=== PATIENT | female | born 1990 | race Caucasian/White ===

== ENCOUNTER 2019-07-18 22:30 | Inpatient (IN) | payer BC ==
[2019-07-18] MEDS ORDERED: Nalbuphine 10 MG/1 ML Vial IVPUSH PRN (22:56)
[2019-07-18] MEDS ORDERED: Ondansetron 4 MG/2 ML SDV IVPUSH PRN (22:56)
[2019-07-18] MEDS ORDERED: Acetaminophen 325 MG Tab PO PRN (22:56)
[2019-07-18] MEDS ORDERED: Lidocaine 1% 50 ML MDV INJECT ONE (22:56)
[2019-07-18] MEDS ORDERED: Sodium Chloride 0.9% 10 ML Syringe FLUSH PRN (22:56)
[2019-07-18] MEDS ORDERED: Oxytocin/Lactated Ringers 10 UNIT/1,000 ML BAG IV SCH ×2 (23:00)
[2019-07-19] MEDS: Lactated Ringers 1,000 ML IV SCH ×3 (02:45→06:34)
[2019-07-19] MEDS ORDERED: fentaNYL/Bupivacaine/NS 2 MCG-0.125% 250 ML EPIDUR PRN (03:04)
[2019-07-19] MEDS ORDERED: fentaNYL 100 MCG/2 ML SDV EPIDUR PRN (03:04)
[2019-07-19] MEDS ORDERED: diphenhydrAMINE 50 MG/ML SDV IVPUSH PRN (03:04)
[2019-07-19] MEDS ORDERED: ePHEDrine 50 MG/ML SDV IVPUSH PRN (03:04)
--- NOTE | 2019-07-19 04:02 | PCM.PREANE ---
Preanesthetic Assessment - Anesthesia/Transfusion/Family Hx Anesthesia History: Prior Anesthesia Without Reaction Family History of Anesthesia Reaction: No Transfusion History: No Prior Transfusion(s) - Review of Systems General: No Symptoms Pulmonary: No Symptoms Cardiovascular: No Symptoms Gastrointestinal: No Symptoms Neurological: No Symptoms - Physical Assessment Vital Signs: Last Vital Signs Temp 35.9 C 07/19/19 02:46 Pulse 78 07/19/19 02:46 Resp 16 07/19/19 02:46 BP 130/83 07/19/19 02:46 Pulse Ox 97 07/19/19 02:46 Weight: 85.275 kg ASA Class: 2 Mental Status: Alert & Oriented x3 Airway Class: Mallampati = 2 Dentition: Reports: Normal Dentition Thyro-Mental Finger Breadths: 3 Mouth Opening Finger Breadths: 3 ROM/Head Extension: Full Lungs: Clear to Auscultation, Normal Respiratory Effort Cardiovascular: Regular Rate, Regular Rhythm - Lab Values: Laboratory Last Values WBC 12.20 K/mm3 (3.98-10.04) H 07/18/19 23:09 RBC 4.31 M/mm3 (3.98-5.22) 07/18/19 23:09 Hgb 12.2 gm/dl (11.2-15.7) D 07/18/19 23:09 Hct 37.1 % (34.1-44.9) 07/18/19 23:09 MCV 86.1 fl (79.4-94.8) 07/18/19 23:09 MCH 28.3 pg (25.6-32.2) 07/18/19 23:09 MCHC 32.9 g/dl (32.2-35.5) 07/18/19 23:09 RDW Std Deviation 42.4 fL (36.4-46.3) 07/18/19 23:09 Plt Count 281 K/mm3 (182-369) 07/18/19 23:09 MPV 9.6 fl (9.4-12.3) 07/18/19 23:09 Neut % (Auto) 72.1 % (34.0-71.1) H 07/18/19 23:09 Lymph % (Auto) 14.9 % (19.3-51.7) L 07/18/19 23:09 [place] % (Auto) 11.2 % (4.7-12.5) 07/18/19 23:09 Eos % (Auto) 0.9 (0.7-5.8) 07/18/19 23:09 Baso % (Auto) 0.2 % (0.1-1.2) 07/18/19 23:09 Neut # (Auto) 8.78 K/mm3 (1.56-6.13) H 07/18/19 23:09 Lymph # (Auto) 1.82 K/mm3 (1.18-3.74) 07/18/19 23:09 [place] # (Auto) 1.37 K/mm3 (0.24-0.36) H 07/18/19 23:09 Eos # (Auto) 0.11 K/mm3 (0.04-0.36) 07/18/19 23:09 Baso # (Auto) 0.03 K/mm3 (0.01-0.08) 07/18/19 23:09 - Allergies Allergies/Adverse Reactions: Allergies Allergy/AdvReac Type Severity Reaction Status Date / Time No Known Allergies Allergy Verified 07/19/19 03:06 - Acknowledgements Anesthesia Type Planned: Epidural Pt an Appropriate Candidate for the Planned Anesthesia: Yes Alternatives and Risks of Anesthesia Discussed w Pt/Guardian: Yes Pt/Guardian Understands and Agrees with Anesthesia Plan: Yes 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: - Infectious Disease History Infectious Disease History: Reports: Human Papilloma Virus (HPV) - Past Surgical History Musculoskeletal Surgical History: Reports: Other (See Below) Other Musculoskeletal Surgeries/Procedures:: TENDON SURGERY ON THUMB - SUBSTANCE USE Smoking Status *Q: Never Smoker Second Hand Smoke Exposure: No Recreational Drug Use History: No - CURRENT (IN HOUSE) MEDS Current Meds: Current Medications Acetaminophen (Tylenol) 650 mg PO Q4H PRN PRN Reason: Pain (Mild 1-3) and fever Diphenhydramine HCl (Benadryl) 25 mg IVPUSH Q6H PRN PRN Reason: pruritis Ephedrine Sulfate (Ephedrine Sulfate) 5 mg IVPUSH ASDIRECTED PRN PRN Reason: Hypotension Fentanyl (Sublimaze) 100 mcg EPIDUR Q3H PRN PRN Reason: Pain Last Admin: 07/19/19 03:50 Dose: 100 mcg Fentanyl/Bupivacaine HCl (Fentanyl/Bupivacaine/Ns 2 Mcg-0.125% 250 Ml) 0 ml EPIDUR CONTINUOUS PRN PRN Reason: Pain Last Admin: 07/19/19 03:51 Dose: 250 ml Lactated Ringer's (Ringers, Lactated) 1,000 mls @ 100 mls/hr IV ASDIRECTED BRIGIDA Last Admin: 07/19/19 03:07 Dose: 999 mls/hr Oxytocin/Lactated Ringer's (Pitocin In Lr 10 Units/1,000 Ml) 10 unit in 1,000 mls @ 12 mls/hr IV TITRATE BRIGIDA; Protocol Oxytocin/Lactated Ringer's (Pitocin In Lr 10 Units/1,000 Ml) 10 unit in 1,000 mls @ 100 mls/hr IV .CONTINUOUS BRIGIDA; Protocol Nalbuphine HCl (Nubain) 10 mg IVPUSH Q2H PRN PRN Reason: Pain Ondansetron HCl (Zofran) 4 mg IVPUSH Q4H PRN PRN Reason: Nausea/Vomiting Sodium Chloride (Saline Flush) 10 ml FLUSH ASDIRECTED PRN PRN Reason: Keep Vein Open Discontinued Medications Lidocaine HCl (Xylocaine 1%) 50 ml INJECT ONETIME ONE Stop: 07/18/19 22:57
--- NOTE | 2019-07-19 06:48 | PCM.PNLD ---
Labor Progress Note - VS & Meds Vital Signs: Last Vital Signs Temp 35.9 C 07/19/19 02:46 Pulse 87 07/19/19 04:00 Resp 16 07/19/19 02:46 BP 131/59 L 07/19/19 04:00 Pulse Ox 98 07/19/19 03:04 Active Medications: Current Medications Acetaminophen (Tylenol) 650 mg PO Q4H PRN PRN Reason: Pain (Mild 1-3) and fever Diphenhydramine HCl (Benadryl) 25 mg IVPUSH Q6H PRN PRN Reason: pruritis Ephedrine Sulfate (Ephedrine Sulfate) 5 mg IVPUSH ASDIRECTED PRN PRN Reason: Hypotension Fentanyl (Sublimaze) 100 mcg EPIDUR Q3H PRN PRN Reason: Pain Last Admin: 07/19/19 03:50 Dose: 100 mcg Fentanyl/Bupivacaine HCl (Fentanyl/Bupivacaine/Ns 2 Mcg-0.125% 250 Ml) 0 ml EPIDUR CONTINUOUS PRN PRN Reason: Pain Last Admin: 07/19/19 03:51 Dose: 250 ml Lactated Ringer's (Ringers, Lactated) 1,000 mls @ 100 mls/hr IV ASDIRECTED BRIGIDA Last Admin: 07/19/19 06:34 Dose: 999 mls/hr Oxytocin/Lactated Ringer's (Pitocin In Lr 10 Units/1,000 Ml) 10 unit in 1,000 mls @ 12 mls/hr IV TITRATE BRIGIDA; Protocol Oxytocin/Lactated Ringer's (Pitocin In Lr 10 Units/1,000 Ml) 10 unit in 1,000 mls @ 100 mls/hr IV .CONTINUOUS BRIGIDA; Protocol Nalbuphine HCl (Nubain) 10 mg IVPUSH Q2H PRN PRN Reason: Pain Ondansetron HCl (Zofran) 4 mg IVPUSH Q4H PRN PRN Reason: Nausea/Vomiting Sodium Chloride (Saline Flush) 10 ml FLUSH ASDIRECTED PRN PRN Reason: Keep Vein Open Discontinued Medications Lidocaine HCl (Xylocaine 1%) 50 ml INJECT ONETIME ONE Stop: 07/18/19 22:57 - Uterine Contractions Uterine Monitoring Mode: External [place] Contraction Intensity: Moderate to Strong Uterine Resting Tone: Soft - Monitoring Monitor Mode: External Ultrasound Heart Rate (FHR) Baseline: 140 Heart Rate (FHR) Variability: Moderate (6-25 bmp) Accelerations: Present, 15x15 Decelerations: Late (rare) Strip Review: Category II - Vaginal Exam Dilation (cm): 10 Effacement (Percent): 100 Station: 1 Cervical Position: Anterior - Labor Progress (Free Text) Labor Progress: Patient comfortable with epidural. Found to be complete with BOW. Membranes ruptured with meconium stained fluid. Continue management
[2019-07-19] MEDS ORDERED: Bupivacaine 0.25% 10 ML SDV ONE (08:00)
--- NOTE | 2019-07-19 09:21 | PCM.DEL ---
L & D Note - General Info Date of Service: 07/19/19 - Delivery Note Labor: Spontaneous Delivery Outcome: Livebirth Delivery Method: Spontaneous Vaginal Delivery-Single Delivery Mode: Spontaneous Presentation: Right Occiput Anterior (PAULIE) Nuchal Cord: None Anesthesia Type: Epidural Amniotic Fluid Description: Meconium Stained Episiotomy Type: None Laceration: 2nd Degree, Perineal Suture type: Vicryl Suture size: 2-0 Placenta: Intact, Spontaneous Cord: 3 Vessels Estimated Blood Loss: 200 : Bulb Syringe, Stimulated, Warmed, Owen Used, Warmer Used Delivery Comments (Free Text/Narrative):: Patient found to be complete and began pushing. With maternal pushing effort head delivered from PAULIE presentation. No nuchal cord present. With gentle downward traction the shoulders and body delivered. placed on maternal abdomen. Cord clamped and cut. Cord blood obtained. Placenta allowed time to separate and expelled intact. Inspection of the perineum showed a 2nd degree laceration which was repaired with a 2-0 vicryl in the typical fashion. - General Info Date of Service: 07/19/19 - Patient Data Vitals - Most Recent: Last Vital Signs Temp 35.9 C 07/19/19 02:46 Pulse 87 07/19/19 04:00 Resp 16 07/19/19 02:46 BP 131/59 L 07/19/19 04:00 Pulse Ox 98 07/19/19 03:04 Weight - Most Recent: 85.275 kg I&O - Last 24 Hours: - Problem List & Annotations (1) 39 weeks gestation of SNOMED Code(s): 04393458 Code(s): Z3A.39 - 39 WEEKS GESTATION OF Status: Acute Current Visit: Yes (2) Normal labor SNOMED Code(s): 16919041 Code(s): O80 - ENCOUNTER FOR FULL-TERM UNCOMPLICATED DELIVERY; Z37.9 - OUTCOME OF DELIVERY, UNSPECIFIED Status: Acute Current Visit: Yes (3) Meconium in amniotic fluid SNOMED Code(s): 768824854 Code(s): P96.83 - MECONIUM STAINING Status: Acute Current Visit: Yes (4) Vaginal delivery SNOMED Code(s): 445698089 Code(s): O80 - ENCOUNTER FOR FULL-TERM UNCOMPLICATED DELIVERY Status: Acute Current Visit: Yes - Problem List Review Problem List Initiated/Reviewed/Updated: Yes - Assessment Assessment:: PPD#0 - Plan Plan:: * Routine cares * Encourage breast feeding * Discharge home in 1-2 days
[2019-07-19] MEDS ORDERED: Witch Hazel Medicated Pads 40/Jar TOP PRN (10:07)
[2019-07-19] MEDS ORDERED: Docusate Sodium 100 MG Cap PO PRN (10:07)
[2019-07-19] MEDS ORDERED: Acetaminophen 325 MG Tab PO PRN (10:07)
[2019-07-19] MEDS ORDERED: Benzocaine/Menthol 20%-0.5% Spray 56 GM Canister TOP PRN (10:07)
[2019-07-19] MEDS: Ibuprofen 600 MG Tab PO PRN ×2 (12:16→18:54)
--- NOTE | 2019-07-19 17:58 | PCM.LDHP ---
L&D History of Present Illness - General Date of Service: 07/19/19 Admit Problem/Dx: Admission Diagnosis/Problem Admission Diagnosis/Problem Source of Information: Patient History Limitations: Reports: No Limitations - History of Present Illness Introduction:: 29 year old at 39 weeks here with labor. PNC with myself without complications. 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: - Infectious Disease History Infectious Disease History: Reports: Human Papilloma Virus (HPV) - Past Surgical History Musculoskeletal Surgical History: Reports: Other (See Below) Other Musculoskeletal Surgeries/Procedures:: TENDON SURGERY ON THUMB Social & Family History - Family History Family Medical History: Noncontributory - Tobacco Use Smoking Status *Q: Never Smoker Second Hand Smoke Exposure: No - Caffeine Use Caffeine Use: Reports: None - Recreational Drug Use Recreational Drug Use: No H&P Review of Systems - Review of Systems: Review Of Systems: See Below General: Reports: No Symptoms HEENT: Reports: No Symptoms Pulmonary: Reports: No Symptoms Cardiovascular: Reports: No Symptoms Gastrointestinal: Reports: No Symptoms Genitourinary: Reports: No Symptoms Musculoskeletal: Reports: No Symptoms Skin: Reports: No Symptoms Psychiatric: Reports: No Symptoms Neurological: Reports: No Symptoms Hematologic/Lymphatic: Reports: No Symptoms Immunologic: Reports: No Symptoms L&D Exam - Exam Exam: See Below - Vital Signs Vital Signs: Last Vital Signs Temp 35.9 C 07/19/19 02:46 Pulse 87 07/19/19 04:00 Resp 16 07/19/19 02:46 BP 131/59 L 07/19/19 04:00 Pulse Ox 98 07/19/19 03:04 Weight: 85.275 kg - OB Specific Contraction Intensity: Moderate to Strong Heart Rate (FHR) Variability: Moderate (6-25 bmp) Presentation: Vertex - Christina Score Christina Score Cervix Position: Midposition Christina Score Consistency: Soft Christina Score Effacement: 51-70% Christina Score Dilation: > 5 cm Christina Score Infant's Station: -2 Christina Score Total: 9 - Exam General: Alert, Oriented HEENT: PERRLA, Conjunctiva Clear, EACs Clear, EOMI, Hearing Intact, Mucosa Moist & [place], Nares Patent, Normal Nasal Septum, Posterior Pharynx Clear, TMs Clear Neck: Supple, Trachea Midline Lungs: Clear to Auscultation, Normal Respiratory Effort Cardiovascular: Regular Rate, Regular Rhythm GI/Abdominal Exam: Normal Bowel Sounds, Soft, Non-Tender, No Organomegaly, No Distention, No Abnormal Bruit, No Mass, Pelvis Stable Rectal Exam: Normal Exam, Normal Rectal Tone Back Exam: Normal Inspection, Full Range of Motion Extremities: Normal Inspection, Normal Range of Motion, Non-Tender, No Pedal Edema, Normal Capillary Refill Skin: Warm, Dry, Intact Neurological: Cranial Nerves Intact, Reflexes Equal Bilateral Psychiatric: Alert, Normal Affect, Normal Mood - Patient Data Lab Results Last 24 hrs: Laboratory Results - last 24 hr 07/18/19 Range/Units 23:09 WBC 12.20 H (3.98-10.04) K/mm3 RBC 4.31 (3.98-5.22) M/mm3 Hgb 12.2 D (11.2-15.7) gm/dl Hct 37.1 (34.1-44.9) % MCV 86.1 (79.4-94.8) fl MCH 28.3 (25.6-32.2) pg MCHC 32.9 (32.2-35.5) g/dl RDW Std Deviation 42.4 (36.4-46.3) fL Plt Count 281 (182-369) K/mm3 MPV 9.6 (9.4-12.3) fl Neut % (Auto) 72.1 H (34.0-71.1) % Lymph % (Auto) 14.9 L (19.3-51.7) % [place] % (Auto) 11.2 (4.7-12.5) % Eos % (Auto) 0.9 (0.7-5.8) Baso % (Auto) 0.2 (0.1-1.2) % Neut # (Auto) 8.78 H (1.56-6.13) K/mm3 Lymph # (Auto) 1.82 (1.18-3.74) K/mm3 [place] # (Auto) 1.37 H (0.24-0.36) K/mm3 Eos # (Auto) 0.11 (0.04-0.36) K/mm3 Baso # (Auto) 0.03 (0.01-0.08) K/mm3 Result Diagrams: 07/18/19 23:09 Problem List Initiated/Reviewed/Updated: Yes Orders Last 24hrs: Active Orders 24 hr Category Date Time Status Activity as Tolerated [RC] PER UNIT ROUTINE Care 07/19/19 10:07 Active Heart Tones [RC] ASDIRECTED Care 07/18/19 22:57 Inactive Vaginal Exam [RC] PRN Care 07/18/19 22:41 Inactive Vital Signs [RC] 03,09,15,21 Care 07/19/19 10:07 Active Regular Diet [DIET] Diet 07/19/19 Lunch Active RAPID PLASMA REAGIN,RPR [CHEM] Routine Lab 07/18/19 22:56 Ordered Acetaminophen [Tylenol] Med 07/19/19 10:07 Active 650 mg PO Q4H PRN Benzocaine/Menthol [Dermoplast Pain Relief [place]] Med 07/19/19 10:07 Active See Dose Instructions TOP ASDIRECTED PRN Docusate Sodium [Colace] Med 07/19/19 10:07 Active 100 mg PO BID PRN Ibuprofen [Motrin] Med 07/19/19 10:07 Active 600 mg PO Q6H PRN Witch Josie [Tucks] Med 07/19/19 10:07 Active 1 pad TOP ASDIRECTED PRN Assess Lochia [WOMSER] Per Unit Routine Oth 07/19/19 10:07 Ordered Assess Uterine Involution [WOMSER] Per Unit Routine Oth 07/19/19 10:07 Ordered Breast Pump [WOMSER] Per Unit Routine Oth 07/19/19 10:07 Ordered Heat Therapy [OM.PC] PRN Oth 07/19/19 10:07 Ordered Heat Therapy [OM.PC] PRN Oth 07/20/19 10:07 Ordered Ice Therapy [OM.PC] Per Unit Routine Oth 07/19/19 10:07 Ordered Perineal Care [OM.PC] Per Unit Routine Oth 07/19/19 10:07 Ordered Peripheral IV Discontinue [OM.PC] Routine Oth 07/19/19 10:07 Ordered Sitz Bath [OM.PC] Per Unit Routine Oth 07/19/19 10:07 Ordered Resuscitation Status Routine Resus Stat 07/18/19 22:40 Ordered Medication Orders Acetaminophen (Tylenol) 650 mg PO Q4H PRN PRN Reason: mild pain or fever Benzocaine/Menthol (Dermoplast Pain Relief [place]) 0 gm TOP ASDIRECTED PRN PRN Reason: Perineal Comfort Measure Last Admin: 07/19/19 12:17 Dose: 1 can Docusate Sodium (Colace) 100 mg PO BID PRN PRN Reason: Constipation Ibuprofen (Motrin) 600 mg PO Q6H PRN PRN Reason: Mild pain or fever Last Admin: 07/19/19 12:16 Dose: 600 mg Witch Josie (Tucks) 1 pad TOP ASDIRECTED PRN PRN Reason: Perineal Comfort Measure Last Admin: 07/19/19 12:19 Dose: 1 container Assessment/Plan Comment:: Term labor.
[2019-07-20] MEDS: Ibuprofen 600 MG Tab PO PRN (05:50)
--- NOTE | 2019-07-20 06:53 | PCM.PNPP ---
- General Info Date of Service: 07/20/19 Functional Status: Reports: Pain Controlled, Tolerating Diet, Ambulating, Urinating - Review of Systems General: Reports: No Symptoms Pulmonary: Reports: No Symptoms Cardiovascular: Reports: No Symptoms Gastrointestinal: Reports: No Symptoms Genitourinary: Reports: Other (some discomfort ) Musculoskeletal: Reports: No Symptoms Neurological: Reports: No Symptoms - Patient Data Vital Signs - Most Recent: Last Vital Signs Temp 36.7 C 07/19/19 20:47 Pulse 91 07/19/19 20:47 Resp 14 07/19/19 20:47 BP 135/73 07/19/19 20:47 Pulse Ox 98 07/19/19 20:47 Weight - Most Recent: 85.275 kg I&O - Last 24 Hours: Intake & Output 07/19/19 07/19/19 07/20/19 14:59 22:59 06:59 Intake Total 360 Balance 360 Lab Results - Last 24 Hours: Laboratory Results - last 24 hr 07/18/19 Range/Units 23:09 RPR Non-reactive (NONREACTIVE) Med Orders - Current: Current Medications Acetaminophen (Tylenol) 650 mg PO Q4H PRN PRN Reason: mild pain or fever Benzocaine/Menthol (Dermoplast Pain Relief [place]) 0 gm TOP ASDIRECTED PRN PRN Reason: Perineal Comfort Measure Last Admin: 07/19/19 12:17 Dose: 1 can Docusate Sodium (Colace) 100 mg PO BID PRN PRN Reason: Constipation Ibuprofen (Motrin) 600 mg PO Q6H PRN PRN Reason: Mild pain or fever Last Admin: 07/20/19 05:50 Dose: 600 mg Witch Josie (Tucks) 1 pad TOP ASDIRECTED PRN PRN Reason: Perineal Comfort Measure Last Admin: 07/19/19 12:19 Dose: 1 container Discontinued Medications Acetaminophen (Tylenol) 650 mg PO Q4H PRN PRN Reason: Pain (Mild 1-3) and fever Bupivacaine HCl (Sensorcaine-Mpf 0.25%) 10 ml .ROUTE .STK-MED ONE Stop: 07/19/19 08:01 Diphenhydramine HCl (Benadryl) 25 mg IVPUSH Q6H PRN PRN Reason: pruritis Ephedrine Sulfate (Ephedrine Sulfate) 5 mg IVPUSH ASDIRECTED PRN PRN Reason: Hypotension Fentanyl (Sublimaze) 100 mcg EPIDUR Q3H PRN PRN Reason: Pain Last Admin: 07/19/19 03:50 Dose: 100 mcg Fentanyl/Bupivacaine HCl (Fentanyl/Bupivacaine/Ns 2 Mcg-0.125% 250 Ml) 0 ml EPIDUR CONTINUOUS PRN PRN Reason: Pain Last Admin: 07/19/19 03:51 Dose: 250 ml Lactated Ringer's (Ringers, Lactated) 1,000 mls @ 100 mls/hr IV ASDIRECTED BRIGIDA Last Admin: 07/19/19 06:34 Dose: 999 mls/hr Oxytocin/Lactated Ringer's (Pitocin In Lr 10 Units/1,000 Ml) 10 unit in 1,000 mls @ 12 mls/hr IV TITRATE BRIGIDA; Protocol Oxytocin/Lactated Ringer's (Pitocin In Lr 10 Units/1,000 Ml) 10 unit in 1,000 mls @ 100 mls/hr IV .CONTINUOUS BRIGIDA; Protocol Lidocaine HCl (Xylocaine 1%) 50 ml INJECT ONETIME ONE Stop: 07/18/19 22:57 Nalbuphine HCl (Nubain) 10 mg IVPUSH Q2H PRN PRN Reason: Pain Ondansetron HCl (Zofran) 4 mg IVPUSH Q4H PRN PRN Reason: Nausea/Vomiting Sodium Chloride (Saline Flush) 10 ml FLUSH ASDIRECTED PRN PRN Reason: Keep Vein Open - Infant Interaction Infant Disposition, : [place] in Room with Family Infant Interaction: Holding Infant Feeding: Breastfed Infant; Nursed Well Support Person: - Recovery Exam Fundal Tone: Firm Fundal Level: 1 Fingerbreadths Below Umbilicus Fundal Placement: Midline Lochia Amount: Small Lochia Color: [place]/Red Episiotomy/Laceration: Approximated Bladder Status: Voiding Urinary Elimination: Voided - Exam General: Alert, Oriented, Cooperative GI/Abdominal Exam: Soft, Non-Tender Extremities: Normal Inspection Skin: Warm, Dry, Intact - Problem List & Annotations (1) 39 weeks gestation of SNOMED Code(s): 08106108 Code(s): Z3A.39 - 39 WEEKS GESTATION OF Status: Acute (2) Normal labor SNOMED Code(s): 87542537 Code(s): O80 - ENCOUNTER FOR FULL-TERM UNCOMPLICATED DELIVERY; Z37.9 - OUTCOME OF DELIVERY, UNSPECIFIED Status: Acute (3) Meconium in amniotic fluid SNOMED Code(s): 284318414 Code(s): P96.83 - MECONIUM STAINING Status: Acute (4) Vaginal delivery SNOMED Code(s): 436204525 Code(s): O80 - ENCOUNTER FOR FULL-TERM UNCOMPLICATED DELIVERY Status: Acute - Problem List Review Problem List Initiated/Reviewed/Updated: Yes - My Orders Last 24 Hours: My Active Orders 07/19/19 10:07 Activity as Tolerated [RC] PER UNIT ROUTINE Vital Signs [RC] 03,09,15,21 Acetaminophen [Tylenol] 650 mg PO Q4H PRN Benzocaine/Menthol [Dermoplast Pain Relief [place]] See Dose Instructions TOP ASDIRECTED PRN Docusate Sodium [Colace] 100 mg PO BID PRN Ibuprofen [Motrin] 600 mg PO Q6H PRN Witch Josie [Tucks] 1 pad TOP ASDIRECTED PRN Assess Lochia [WOMSER] Per Unit Routine Assess Uterine Involution [WOMSER] Per Unit Routine Breast Pump [WOMSER] Per Unit Routine Heat Therapy [OM.PC] PRN Ice Therapy [OM.PC] Per Unit Routine Perineal Care [OM.PC] Per Unit Routine Peripheral IV Discontinue [OM.PC] Routine Sitz Bath [OM.PC] Per Unit Routine 07/19/19 Lunch Regular Diet [DIET] 07/20/19 10:07 Heat Therapy [OM.PC] PRN - Assessment Assessment:: PPD#1 - Plan Plan:: * Routine cares * Encourage breast feeding * Discharge home today per patient preference
--- NOTE | 2019-07-20 07:04 | PCM.DCSUM1 ---
Discharge Summary - Discharge Data Discharge Date: 07/20/19 Discharge Disposition: Home, Self-Care 01 Condition: Good - Referral to Home Health Primary Care Physician: Mary Hernandez MD - Discharge Diagnosis/Problem(s) (1) 39 weeks gestation of SNOMED Code(s): 85778595 ICD Code: Z3A.39 - 39 WEEKS GESTATION OF Status: Acute (2) Normal labor SNOMED Code(s): 84525100 ICD Code: O80 - ENCOUNTER FOR FULL-TERM UNCOMPLICATED DELIVERY; Z37.9 - OUTCOME OF DELIVERY, UNSPECIFIED Status: Acute (3) Meconium in amniotic fluid SNOMED Code(s): 071618865 ICD Code: P96.83 - MECONIUM STAINING Status: Acute (4) Vaginal delivery SNOMED Code(s): 916864771 ICD Code: O80 - ENCOUNTER FOR FULL-TERM UNCOMPLICATED DELIVERY Status: Acute - Patient Summary/Data Complications: None Consults: None Recommended Follow-up Testing/Procedures: Follow up in 2 weeks for check Hospital Course: 29 y/o woman admitted at 39 weeks in labor. She progressed well to complete dilation without need for augmentation. Underwent an uncomplicated . See delivery note. did well. Was discharged home on PPD#1 - Patient Instructions Diet: Regular Diet as Tolerated Activity: As Tolerated Activity, Other: Pelvic rest for 6 weeks Driving: May Drive Today Showering/Bathing: May Shower Showering/Bathing, Other: May Bathe Notify Provider of: Fever, Increased Pain, Swelling and Redness, Drainage, Nausea and/or Vomiting - Discharge Plan *PRESCRIPTION DRUG MONITORING PROGRAM REVIEWED*: No *COPY OF PRESCRIPTION DRUG MONITORING REPORT IN PATIENT LAKESHA: No Home Medications: Home Meds Vits #93/Iron Fum/FA [ Formula Tablet] 1 tab PO DAILY 07/19/19 [History] Acetaminophen [Tylenol] 650 mg PO Q4H PRN tablet 07/20/19 [Rx] Ibuprofen [Motrin] 600 mg PO Q6H PRN tablet 07/20/19 [Rx] Patient Handouts: Vaginal Delivery, Care After Referrals: Mary Hernandez MD [Primary Care Provider] - (3 weeks for check ) - Discharge Summary/Plan Comment DC Time >30 min.: No - Patient Data Vitals - Most Recent: Last Vital Signs Temp 36.7 C 07/19/19 20:47 Pulse 91 07/19/19 20:47 Resp 14 07/19/19 20:47 BP 135/73 07/19/19 20:47 Pulse Ox 98 07/19/19 20:47 Weight - Most Recent: 85.275 kg I&O - Last 24 hours: Intake & Output 07/19/19 07/20/19 07/20/19 22:59 06:59 14:59 Intake Total 360 Balance 360 Lab Results - Last 24 hrs: Laboratory Results - last 24 hr 07/18/19 Range/Units 23:09 RPR Non-reactive (NONREACTIVE) Med Orders - Current: Current Medications Acetaminophen (Tylenol) 650 mg PO Q4H PRN PRN Reason: mild pain or fever Benzocaine/Menthol (Dermoplast Pain Relief [place]) 0 gm TOP ASDIRECTED PRN PRN Reason: Perineal Comfort Measure Last Admin: 07/19/19 12:17 Dose: 1 can Docusate Sodium (Colace) 100 mg PO BID PRN PRN Reason: Constipation Ibuprofen (Motrin) 600 mg PO Q6H PRN PRN Reason: Mild pain or fever Last Admin: 07/20/19 05:50 Dose: 600 mg Witch Josie (Tucks) 1 pad TOP ASDIRECTED PRN PRN Reason: Perineal Comfort Measure Last Admin: 07/19/19 12:19 Dose: 1 container Discontinued Medications Acetaminophen (Tylenol) 650 mg PO Q4H PRN PRN Reason: Pain (Mild 1-3) and fever Bupivacaine HCl (Sensorcaine-Mpf 0.25%) 10 ml .ROUTE .STK-MED ONE Stop: 07/19/19 08:01 Diphenhydramine HCl (Benadryl) 25 mg IVPUSH Q6H PRN PRN Reason: pruritis Ephedrine Sulfate (Ephedrine Sulfate) 5 mg IVPUSH ASDIRECTED PRN PRN Reason: Hypotension Fentanyl (Sublimaze) 100 mcg EPIDUR Q3H PRN PRN Reason: Pain Last Admin: 07/19/19 03:50 Dose: 100 mcg Fentanyl/Bupivacaine HCl (Fentanyl/Bupivacaine/Ns 2 Mcg-0.125% 250 Ml) 0 ml EPIDUR CONTINUOUS PRN PRN Reason: Pain Last Admin: 07/19/19 03:51 Dose: 250 ml Lactated Ringer's (Ringers, Lactated) 1,000 mls @ 100 mls/hr IV ASDIRECTED BRIGIDA Last Admin: 07/19/19 06:34 Dose: 999 mls/hr Oxytocin/Lactated Ringer's (Pitocin In Lr 10 Units/1,000 Ml) 10 unit in 1,000 mls @ 12 mls/hr IV TITRATE BRIGIDA; Protocol Oxytocin/Lactated Ringer's (Pitocin In Lr 10 Units/1,000 Ml) 10 unit in 1,000 mls @ 100 mls/hr IV .CONTINUOUS BRIGIDA; Protocol Lidocaine HCl (Xylocaine 1%) 50 ml INJECT ONETIME ONE Stop: 07/18/19 22:57 Nalbuphine HCl (Nubain) 10 mg IVPUSH Q2H PRN PRN Reason: Pain Ondansetron HCl (Zofran) 4 mg IVPUSH Q4H PRN PRN Reason: Nausea/Vomiting Sodium Chloride (Saline Flush) 10 ml FLUSH ASDIRECTED PRN PRN Reason: Keep Vein Open
--- NOTE | 2019-07-20 07:07 | PCM48HPAN ---
Post Anesthesia Note - EVALUATION WITHIN 48HRS OF ANESTHETIC Vital Signs in Normal Range: Yes Patient Participated in Evaluation: Yes Respiratory Function Stable: Yes Airway Patent: Yes Cardiovascular Function Stable: Yes Hydration Status Stable: Yes Pain Control Satisfactory: Yes Nausea and Vomiting Control Satisfactory: Yes Mental Status Recovered: Yes Vital Signs: Last Vital Signs Temp 36.7 C 07/19/19 20:47 Pulse 91 07/19/19 20:47 Resp 14 07/19/19 20:47 BP 135/73 07/19/19 20:47 Pulse Ox 98 07/19/19 20:47
== END 2019-07-20 17:55 | disposition home or self-care (01) | DRG 560 ==
LOC: JD.OBCHECK 22:30 → JD.OB 22:42 → JD.OBCHECK 23:16 → JD.OB 23:18 → OBSVTOIN 07-19 09:21 → JD.ICU 07-19 09:30 → JD.OB 07-19 13:06
PROVIDERS: ADMIT Obstetrics & Gynecology; ATTEND Obstetrics & Gynecology
PROC: 10E0XZZ Delivery of Products of Conception, External Approach (ICD-10-PCS; principal; 2019-07-19)
PROC: 0KQM0ZZ Repair Perineum Muscle, Open Approach (ICD-10-PCS; 2019-07-19)
DX: O77.0 Labor and delivery complicated by meconium in amniotic fluid (principal); O70.1 Second degree perineal laceration during delivery; Z3A.39 39 weeks gestation of pregnancy; Z37.0 Single live birth
CPT/HCPCS: 36415; 51702; 59025; 59409; 85025; 86592; A9270-GY; J2590; J3010; J3490; J7120

== ENCOUNTER 2021-03-12 08:44 | Inpatient (IN) | payer MEDICAID ==
[2021-03-12] MEDS ORDERED: Ondansetron 4 MG/2 ML SDV IVPUSH PRN (09:33)
[2021-03-12] MEDS ORDERED: Nalbuphine 10 MG/1 ML Vial IVPUSH PRN (09:33)
[2021-03-12] MEDS ORDERED: Lidocaine 1% 50 ML MDV INJECT ONE (09:33)
[2021-03-12] MEDS ORDERED: Sodium Chloride 0.9% 10 ML Syringe FLUSH PRN (09:33)
[2021-03-12] MEDS ORDERED: Oxytocin/Lactated Ringers 10 UNIT/1,000 ML BAG IV SCH ×2 (09:45)
[2021-03-12] MEDS ORDERED: Ampicillin 2 GM in Sodium Chloride 0.9% 100 ML IV ONE (10:00)
--- NOTE | 2021-03-12 10:12 | PCM.PREANE ---
Preanesthetic Assessment - Procedure Proposed Procedure: Labor epidural - Anesthesia/Transfusion/Family Hx Anesthesia History: Prior Anesthesia Without Reaction Family History of Anesthesia Reaction: No Transfusion History: No Prior Transfusion(s) Intubation History: Unknown - Review of Systems General: No Symptoms Pulmonary: No Symptoms Cardiovascular: No Symptoms Gastrointestinal: Abdominal Pain (uterine contractions) Neurological: No Symptoms - Physical Assessment NPO Status Date: 03/12/21 NPO Status Time: 08:30 Vital Signs: Last Vital Signs Temp 98.4 F 03/12/21 08:59 Pulse 93 03/12/21 08:59 Resp 13 03/12/21 08:59 BP 136/81 03/12/21 08:59 Pulse Ox 98 03/12/21 08:59 Height: 1.68 m Weight: 85.729 kg ASA Class: 2 Mental Status: Alert & Oriented x3 Airway Class: Mallampati = 2 Dentition: Reports: Normal Dentition Thyro-Mental Finger Breadths: 3 Mouth Opening Finger Breadths: 3 ROM/Head Extension: Full Lungs: Clear to Auscultation, Normal Respiratory Effort Cardiovascular: Regular Rate, Regular Rhythm - Lab Values: Labs reviewed and okay to proceed - Allergies Allergies/Adverse Reactions: Allergies Allergy/AdvReac Type Severity Reaction Status Date / Time No Known Allergies Allergy Verified 03/12/21 08:59 - Blood Blood Available: No Product(s) Available: None - Acknowledgements Anesthesia Type Planned: Epidural Pt an Appropriate Candidate for the Planned Anesthesia: Yes Alternatives and Risks of Anesthesia Discussed w Pt/Guardian: Yes Pt/Guardian Understands and Agrees with Anesthesia Plan: Yes PreAnesthesia Questionnaire HEENT History: Reports: Impaired Vision Other HEENT History: contacts Gastrointestinal History: Reports: GERD [employer] History: Reports: Other Immunologic History: HPV - Infectious Disease History Infectious Disease History: Reports: Human Papilloma Virus (HPV) - Past Surgical History Other Female Surgeries/Procedures: D and C Musculoskeletal Surgical History: Reports: Other (See Below) Other Musculoskeletal Surgeries/Procedures:: TENDON SURGERY ON THUMB - SUBSTANCE USE Tobacco Use Status *Q: Never Tobacco User Tobacco Use Within Last Twelve Months: No Second Hand Smoke Exposure: No Days Per Week of Alcohol Use: 0 Number of Drinks Per Day: 0 Total Drinks Per Week: 0 Recreational Drug Use History: No - HOME MEDS Home Medications: Home Meds Vits #93/Iron Fum/FA [ Formula Tablet] 1 tab PO DAILY 07/19/19 [History] - CURRENT (IN HOUSE) MEDS Current Meds: Current Medications Lactated Ringer's (Ringers, Lactated) 1,000 mls @ 100 mls/hr IV ASDIRECTED BIRGIDA Ampicillin Sodium 2 gm/ Sodium (Chloride) 100 mls @ 200 mls/hr IV ONETIME ONE Stop: 03/12/21 10:29 Ampicillin Sodium 1 gm/ Sodium (Chloride) 100 mls @ 200 mls/hr IV Q4H BRIGIDA Oxytocin/Lactated Ringer's (Pitocin In Lr 10 Units/1,000 Ml) 10 unit in 1,000 mls @ 12 mls/hr IV TITRATE BRIGIDA; Protocol Oxytocin/Lactated Ringer's (Pitocin In Lr 10 Units/1,000 Ml) 10 unit in 1,000 mls @ 500 mls/hr IV .CONTINUOUS BRIGIDA Nalbuphine HCl (Nalbuphine 10 Mg/1 Ml Vial) 10 mg IVPUSH Q2H PRN PRN Reason: Pain Ondansetron HCl (Ondansetron 4 Mg/2 Ml Sdv) 4 mg IVPUSH Q4H PRN PRN Reason: Nausea/Vomiting Sodium Chloride (Sodium Chloride 0.9% 10 Ml Syringe) 10 ml FLUSH ASDIRECTED PRN PRN Reason: Keep Vein Open Discontinued Medications Lidocaine HCl (Lidocaine 1% 50 Ml Mdv) 50 ml INJECT ONETIME ONE Stop: 03/12/21 09:34
[2021-03-12] MEDS: Lactated Ringers 1,000 ML IV SCH ×3 (10:16→14:41)
[2021-03-12] MEDS ORDERED: Bupivacaine 0.25% 10 ML SDV ONE (12:00)
--- NOTE | 2021-03-12 12:23 | PCM.LDHP ---
L&D History of Present Illness - General Date of Service: 03/12/21 Admit Problem/Dx: Patient Status Order with Admit Dx/Problem 03/12/21 08:59 Patient Status [ADT] Routine 03/12/21 09:33 Patient Status [ADT] Routine Admission Diagnosis/Problem Admission Diagnosis/Problem Source of Information: Patient History Limitations: Reports: No Limitations - History of Present Illness Introduction:: Patient is a 30 y/o at 39 0/7 wks who presents for SROM. Occurred this AM at about 0430. Some contractions since, but overall mild. - Related Data Allergies/Adverse Reactions: Allergies Allergy/AdvReac Type Severity Reaction Status Date / Time No Known Allergies Allergy Verified 03/12/21 08:59 Home Medications: Home Meds Vits #93/Iron Fum/FA [ Formula Tablet] 1 tab PO DAILY 07/19/19 [History] Past Medical History HEENT History: Reports: Impaired Vision Other HEENT History: contacts Gastrointestinal History: Reports: GERD ANODISER History: Reports: , Spontaneous : 3 Para: 1 LMP (Approximate): - Past Surgical History Female Surgical History: Reports: D&C Other Female Surgeries/Procedures: D and C Musculoskeletal Surgical History: Reports: Other (See Below) Other Musculoskeletal Surgeries/Procedures:: TENDON SURGERY ON THUMB Social & Family History - Family History Family Medical History: No Pertinent Family History - Tobacco Use Tobacco Use Status *Q: Never Tobacco User Second Hand Smoke Exposure: No - Caffeine Use Caffeine Use: Reports: None - Alcohol Use Alcohol Use History: No Days Per Week of Alcohol Use: 0 Number of Drinks Per Day: 0 Total Drinks Per Week: 0 - Recreational Drug Use Recreational Drug Use: No H&P Review of Systems - Review of Systems: Review Of Systems: See Below General: Reports: No Symptoms Pulmonary: Reports: No Symptoms Cardiovascular: Reports: No Symptoms Gastrointestinal: Reports: No Symptoms Genitourinary: Reports: No Symptoms Musculoskeletal: Reports: No Symptoms Skin: Reports: No Symptoms Neurological: Reports: No Symptoms L&D Exam - Exam Exam: See Below - Vital Signs Vital Signs: Last Vital Signs Temp 36.9 C 03/12/21 08:59 Pulse 93 03/12/21 08:59 Resp 13 03/12/21 08:59 BP 136/81 03/12/21 08:59 Pulse Ox 98 03/12/21 08:59 Weight: 85.729 kg - OB Specific Contraction Intensity: Mild Movement: Active Heart Tones: Present Heart Tones per Min: 135 Heart Rate (FHR) Variability: Moderate (6-25 bpm) Presentation: Vertex - Christina Score Christina Score Cervix Position: Midposition Christina Score Consistency: Soft Christina Score Effacement: >80% Christina Score Dilation: > 5 cm Christina Score 's Station: -2 Christina Score Total: 10 - Exam General: Alert, Oriented, Cooperative Lungs: Clear to Auscultation, Normal Respiratory Effort Cardiovascular: Regular Rate, Regular Rhythm GI/Abdominal Exam: Soft, Non-Tender Genitourinary: Normal external exam Extremities: Normal Inspection Skin: Warm, Dry, Intact - Patient Data Lab Results Last 24 hrs: Laboratory Results - last 24 hr 03/12/21 03/12/21 Range/Units 09:30 09:50 WBC 10.77 H (3.98-10.04) K/mm3 RBC 4.20 (3.98-5.22) M/mm3 Hgb 12.0 (11.2-15.7) gm/dl Hct 35.9 (34.1-44.9) % MCV 85.5 (79.4-94.8) fl MCH 28.6 (25.6-32.2) pg MCHC 33.4 (32.2-35.5) g/dl RDW Std Deviation 43.1 (36.4-46.3) fL Plt Count 252 (182-369) K/mm3 MPV 9.8 (9.4-12.3) fl Neut % (Auto) 76.7 H (34.0-71.1) % Lymph % (Auto) 12.2 L (19.3-51.7) % [place] % (Auto) 10.3 (4.7-12.5) % Eos % (Auto) 0.6 L (0.7-5.8) Baso % (Auto) 0.2 (0.1-1.2) % Neut # (Auto) 8.27 H (1.56-6.13) K/mm3 Lymph # (Auto) 1.31 (1.18-3.74) K/mm3 [place] # (Auto) 1.11 H (0.24-0.36) K/mm3 Eos # (Auto) 0.06 (0.04-0.36) K/mm3 Baso # (Auto) 0.02 (0.01-0.08) K/mm3 SARS-CoV-2 RNA (FROYLAN) Negative (NEGATIVE) Result Diagrams: 03/12/21 09:50 - Problem List (1) 39 weeks gestation of SNOMED Code(s): 11572742 ICD Code: Z3A.39 - 39 WEEKS GESTATION OF Status: Acute Current Visit: No (2) Spontaneous rupture of membranes SNOMED Code(s): 500739918 ICD Code: RLN0674 - Status: Acute Current Visit: Yes (3) GBS (group B Streptococcus carrier), +RV culture, currently SNOMED Code(s): 3393314951955, 911829822, 7620583956685 ICD Code: O99.820 - STREPTOCOCCUS B CARRIER STATE COMPLICATING Status: Acute Current Visit: Yes Problem List Initiated/Reviewed/Updated: Yes Orders Last 24hrs: Active Orders 24 hr Category Date Time Status Patient Status [ADT] Routine ADT 03/12/21 09:33 Active Activity as Tolerated [RC] PFP Care 03/12/21 09:33 Active Communication Order [RC] ASDIRECTED Care 03/12/21 09:33 Active Heart Tones [RC] ASDIRECTED Care 03/12/21 09:33 Active Notify Provider [RC] PFP Care 03/12/21 09:33 Active Notify Provider [RC] PRN Care 03/12/21 09:33 Active Peripheral IV Care [RC] . DIRECTED Care 03/12/21 09:33 Active Vaginal Exam [RC] PRN Care 03/12/21 09:03 Active Vital Signs [RC] PER UNIT ROUTINE Care 03/12/21 08:59 Active Regular Diet [DIET] Diet 03/12/21 Lunch Active HEP C VIRUS AB [REF] Stat Lab 03/12/21 09:36 Ordered RAPID PLASMA REAGIN,RPR [CHEM] Routine Lab 03/12/21 09:33 Ordered Ampicillin 1 gm Med 03/12/21 14:00 Active Sodium Chloride 0.9% [Normal Saline] 100 ml IV Q4H Lactated Ringers [Ringers, Lactated] 1,000 ml Med 03/12/21 09:45 Active IV ASDIRECTED Nalbuphine [Nubain] Med 03/12/21 09:33 Active 10 mg IVPUSH Q2H PRN Ondansetron [Zofran] Med 03/12/21 09:33 Active 4 mg IVPUSH Q4H PRN Oxytocin/Lactated Ringers [Pitocin in LR 10 Units/1,000 Med 03/12/21 09:45 Active ML] 10 unit in 1,000 ml IV .CONTINUOUS Oxytocin/Lactated Ringers [Pitocin in LR 10 Units/1,000 Med 03/12/21 09:45 Active ML] 10 unit in 1,000 ml IV TITRATE Sodium Chloride 0.9% [Saline Flush] Med 03/12/21 09:33 Active 10 ml FLUSH ASDIRECTED PRN Electronic Heart Tones Ext w TOCO [WOMSER] Oth 03/12/21 09:33 Ordered Routine Electronic Heart Tones Internal [WOMSER] Per Unit Oth 03/12/21 09:33 Ordered Routine Peripheral IV Insertion Adult [OM.PC] Routine Oth 03/12/21 09:33 Ordered Resuscitation Status Routine Resus Stat 03/12/21 08:59 Ordered Medication Orders Lactated Ringer's (Ringers, Lactated) 1,000 mls @ 100 mls/hr IV ASDIRECTED BRIGIDA Last Admin: 03/12/21 10:16 Dose: 100 mls/hr Documented by: [id number] Ampicillin Sodium 1 gm/ Sodium (Chloride) 100 mls @ 200 mls/hr IV Q4H BRIGIDA Oxytocin/Lactated Ringer's (Pitocin In Lr 10 Units/1,000 Ml) 10 unit in 1,000 mls @ 12 mls/hr IV TITRATE BRIGIDA; Protocol Oxytocin/Lactated Ringer's (Pitocin In Lr 10 Units/1,000 Ml) 10 unit in 1,000 mls @ 500 mls/hr IV .CONTINUOUS BRIGIDA Nalbuphine HCl (Nalbuphine 10 Mg/1 Ml Vial) 10 mg IVPUSH Q2H PRN PRN Reason: Pain Ondansetron HCl (Ondansetron 4 Mg/2 Ml Sdv) 4 mg IVPUSH Q4H PRN PRN Reason: Nausea/Vomiting Sodium Chloride (Sodium Chloride 0.9% 10 Ml Syringe) 10 ml FLUSH ASDIRECTED PRN PRN Reason: Keep Vein Open Assessment/Plan Comment:: * Labs to be done * GBS positive, Ampicillin started * Pain management per patient preference * Anticipate
[2021-03-12] MEDS ORDERED: Bupivacaine/fentaNYL/NS 100 ML Bag EPIDUR PRN (13:26)
[2021-03-12] MEDS ORDERED: diphenhydrAMINE 50 MG/ML SDV IVPUSH PRN (13:26)
[2021-03-12] MEDS ORDERED: ePHEDrine 50 MG/ML SDV IVPUSH PRN (13:26)
[2021-03-12] MEDS ORDERED: fentaNYL 100 MCG/2 ML SDV EPIDUR PRN (13:26)
[2021-03-12] MEDS ORDERED: Ampicillin 1 GM in Sodium Chloride 0.9% 100 ML IV SCH (14:00)
--- NOTE | 2021-03-12 16:58 | PCM.DEL ---
L & D Note - General Info Date of Service: 03/12/21 - Delivery Note Labor: Spontaneous Delivery Outcome: Livebirth Delivery Method: Spontaneous Vaginal Delivery-Single Delivery Mode: Spontaneous Presentation: Left Occiput Anterior (VICKY) Nuchal Cord: None Anesthesia Type: None Amniotic Fluid Description: Clear Episiotomy Type: None Laceration: 1st Degree Placenta: Intact, Spontaneous Cord: 3 Vessels Estimated Blood Loss: 100 Resuscitation Needed: Yes [place]: Bulb Syringe, Stimulated, Warmed, [place] Used Delivery Comments (Free Text/Narrative):: Patient found to be complete and began pushing. With maternal pushing effort head delivered from VICKY presentation. No nuchal cord present. With gentle downward traction the shoulders and body delivered. placed on maternal abdomen. Cord clamped and cut. Cord blood obtained. Placenta allowed time to separate and expelled intact. Inspection of perineum showed a small 1st degree laceration. This was hemostatic and so not repaired - General Info Date of Service: 03/12/21 - Patient Data Vitals - Most Recent: Last Vital Signs Temp 36.9 C 03/12/21 08:59 Pulse 93 03/12/21 08:59 Resp 13 03/12/21 08:59 BP 136/81 03/12/21 08:59 Pulse Ox 98 03/12/21 08:59 Weight - Most Recent: 85.729 kg I&O - Last 24 Hours: Intake & Output 03/12/21 03/12/21 03/12/21 06:59 14:59 22:59 Intake Total 2200 180 Balance 2200 180 - Problem List & Annotations (1) 39 weeks gestation of SNOMED Code(s): 25950110 Code(s): Z3A.39 - 39 WEEKS GESTATION OF Status: Acute Current Visit: No (2) Spontaneous rupture of membranes SNOMED Code(s): 233726989 Code(s): FNR8620 - Status: Acute Current Visit: Yes (3) GBS (group B Streptococcus carrier), +RV culture, currently SNOMED Code(s): 7586770968384, 448640165, 2671256951055 Code(s): O99.820 - STREPTOCOCCUS B CARRIER STATE COMPLICATING Status: Acute Current Visit: Yes (4) Vaginal delivery SNOMED Code(s): 003411019 Code(s): O80 - ENCOUNTER FOR FULL-TERM UNCOMPLICATED DELIVERY Status: Acute Current Visit: No - Problem List Review Problem List Initiated/Reviewed/Updated: Yes - My Orders Last 24 Hours: My Active Orders 03/12/21 08:59 Vital Signs [RC] 03,,, Resuscitation Status Routine 03/12/21 09:33 Patient Status [ADT] Routine Activity as Tolerated [RC] PFP Communication Order [RC] ASDIRECTED Notify Provider [RC] PFP Notify Provider [RC] PRN Peripheral IV Care [RC] . DIRECTED RAPID PLASMA REAGIN,RPR [CHEM] Routine Nalbuphine [Nubain] 10 mg IVPUSH Q2H PRN Ondansetron [Zofran] 4 mg IVPUSH Q4H PRN Sodium Chloride 0.9% [Saline Flush] 10 ml FLUSH ASDIRECTED PRN Electronic Heart Tones Ext w TOCO [WOMSER] Routine Electronic Heart Tones Internal [WOMSER] Per Unit Routine Peripheral IV Insertion Adult [OM.PC] Routine 03/12/21 09:45 Lactated Ringers [Ringers, Lactated] 1,000 ml IV ASDIRECTED Oxytocin/Lactated Ringers [Pitocin in LR 10 Units/1,000 ML] 10 unit in 1,000 ml IV .CONTINUOUS Oxytocin/Lactated Ringers [Pitocin in LR 10 Units/1,000 ML] 10 unit in 1,000 ml IV TITRATE 03/12/21 09:50 HEP C VIRUS AB [REF] Stat 03/12/21 Lunch Regular Diet [DIET] 03/12/21 14:00 Ampicillin 1 gm Sodium Chloride 0.9% [Normal Saline] 100 ml IV Q4H 03/12/21 16:57 Patient Status Manage Transfer [TRANSFER] Routine - Assessment Assessment:: PPD#0 - Plan Plan:: * Routine cares * Breast feeding * Discharge home in 1-2 days
[2021-03-12] MEDS ORDERED: Benzocaine/Menthol 20%-0.5% Spray 56 GM Canister TOP PRN (17:16)
[2021-03-12] MEDS ORDERED: Docusate Sodium 100 MG Cap PO PRN (17:16)
[2021-03-12] MEDS ORDERED: Witch Hazel Medicated Pads 40/Jar TOP PRN (17:16)
[2021-03-12] MEDS ORDERED: Acetaminophen 325 MG Tab PO PRN (17:16)
[2021-03-12] MEDS: Ibuprofen 600 MG Tab PO PRN (17:28)
[2021-03-13] MEDS: Ibuprofen 600 MG Tab PO PRN (00:39)
--- NOTE | 2021-03-13 06:30 | PCM.PNPP ---
- General Info Date of Service: 03/13/21 Functional Status: Reports: Pain Controlled, Tolerating Diet, Ambulating, Urinating - Review of Systems General: Reports: No Symptoms Pulmonary: Reports: No Symptoms Cardiovascular: Reports: No Symptoms Gastrointestinal: Reports: No Symptoms Genitourinary: Reports: No Symptoms Musculoskeletal: Reports: No Symptoms - General Info Date of Service: 03/13/21 - Patient Data Vital Signs - Most Recent: Last Vital Signs Temp 36.6 C 03/13/21 04:14 Pulse 80 03/13/21 04:15 Resp 14 03/13/21 04:14 BP 112/64 03/13/21 04:15 Pulse Ox 97 03/13/21 04:15 Weight - Most Recent: 85.729 kg I&O - Last 24 Hours: Intake & Output 03/12/21 03/12/21 03/13/21 14:59 22:59 06:59 Intake Total 2200 1180 Output Total 231 Balance 2200 949 Lab Results - Last 24 Hours: Laboratory Results - last 24 hr 03/12/21 03/12/21 Range/Units 09:30 09:50 WBC 10.77 H (3.98-10.04) K/mm3 RBC 4.20 (3.98-5.22) M/mm3 Hgb 12.0 (11.2-15.7) gm/dl Hct 35.9 (34.1-44.9) % MCV 85.5 (79.4-94.8) fl MCH 28.6 (25.6-32.2) pg MCHC 33.4 (32.2-35.5) g/dl RDW Std Deviation 43.1 (36.4-46.3) fL Plt Count 252 (182-369) K/mm3 MPV 9.8 (9.4-12.3) fl Neut % (Auto) 76.7 H (34.0-71.1) % Lymph % (Auto) 12.2 L (19.3-51.7) % [place] % (Auto) 10.3 (4.7-12.5) % Eos % (Auto) 0.6 L (0.7-5.8) Baso % (Auto) 0.2 (0.1-1.2) % Neut # (Auto) 8.27 H (1.56-6.13) K/mm3 Lymph # (Auto) 1.31 (1.18-3.74) K/mm3 [place] # (Auto) 1.11 H (0.24-0.36) K/mm3 Eos # (Auto) 0.06 (0.04-0.36) K/mm3 Baso # (Auto) 0.02 (0.01-0.08) K/mm3 SARS-CoV-2 RNA (FROYLAN) Negative (NEGATIVE) Med Orders - Current: Current Medications Acetaminophen (Acetaminophen 325 Mg Tab) 650 mg PO Q4H PRN PRN Reason: mild pain or fever Benzocaine/Menthol (Benzocaine/Menthol 20%-0.5% [place] 56 Gm Canister) 0 gm TOP ASDIRECTED PRN PRN Reason: Perineal Comfort Measure Last Admin: 03/12/21 17:29 Dose: 1 canister Documented by: Docusate Sodium (Docusate Sodium 100 Mg Cap) 100 mg PO BID PRN PRN Reason: Constipation Ibuprofen (Ibuprofen 600 Mg Tab) 600 mg PO Q4H PRN PRN Reason: Mild pain or fever Last Admin: 03/13/21 00:39 Dose: 600 mg Documented by: Hesham Galindo (Hesham Galindo Medicated Pads 40/Jar) 1 pad TOP ASDIRECTED PRN PRN Reason: Perineal Comfort Measure Last Admin: 03/12/21 17:29 Dose: 1 tub Documented by: Discontinued Medications Bupivacaine HCl (Bupivacaine 0.25% 10 Ml Sdv) 10 ml .ROUTE .STK-MED ONE Stop: 03/12/21 12:01 Diphenhydramine HCl (Diphenhydramine 50 Mg/Ml Sdv) 25 mg IVPUSH Q6H PRN PRN Reason: pruritis Ephedrine Sulfate (Ephedrine 50 Mg/Ml Sdv) 5 mg IVPUSH ASDIRECTED PRN PRN Reason: Hypotension Fentanyl (Fentanyl 100 Mcg/2 Ml Sdv) 100 mcg EPIDUR Q3H PRN PRN Reason: Pain Fentanyl/Bupivacaine HCl (Bupivacaine/Fentanyl/Ns 100 Ml Bag) 100 ml EPIDUR ASDIRECTED PRN PRN Reason: Pain Lactated Ringer's (Ringers, Lactated) 1,000 mls @ 100 mls/hr IV ASDIRECTED [facility] Last Infusion: 03/12/21 14:41 Dose: Infused Documented by: Ampicillin Sodium 2 gm/ Sodium (Chloride) 100 mls @ 200 mls/hr IV ONETIME ONE Stop: 03/12/21 10:29 Last Admin: 03/12/21 10:16 Dose: 200 mls/hr Documented by: Ampicillin Sodium 1 gm/ Sodium (Chloride) 100 mls @ 200 mls/hr IV Q4H BRIGIDA Last Admin: 03/12/21 13:42 Dose: 200 mls/hr Documented by: Oxytocin/Lactated Ringer's (Pitocin In Lr 10 Units/1,000 Ml) 10 unit in 1,000 mls @ 12 mls/hr IV TITRATE BRIGIDA; Protocol Oxytocin/Lactated Ringer's (Pitocin In Lr 10 Units/1,000 Ml) 10 unit in 1,000 mls @ 500 mls/hr IV .CONTINUOUS BRIGIDA Last Admin: 03/12/21 15:05 Dose: 500 mls/hr Documented by: Lidocaine HCl (Lidocaine 1% 50 Ml Mdv) 50 ml INJECT ONETIME ONE Stop: 03/12/21 09:34 Last Admin: 03/12/21 15:37 Dose: Not Given Documented by: Nalbuphine HCl (Nalbuphine 10 Mg/1 Ml Vial) 10 mg IVPUSH Q2H PRN PRN Reason: Pain Ondansetron HCl (Ondansetron 4 Mg/2 Ml Sdv) 4 mg IVPUSH Q4H PRN PRN Reason: Nausea/Vomiting Sodium Chloride (Sodium Chloride 0.9% 10 Ml Syringe) 10 ml FLUSH ASDIRECTED PRN PRN Reason: Keep Vein Open - Infant Interaction Infant Disposition, : [place] in Room with Family Infant Interaction: Holding Infant Feeding: Bottle Fed Infant Support Person: - Recovery Exam Fundal Tone: Firm Fundal Level: At Umbilicus Fundal Placement: Midline Lochia Amount: Small Lochia Color: Rubra/Red Perineum Description: Other (see below) Other Perinuem Description: 1st degree without repair Bladder Status: Voiding Urinary Elimination: Voided - Exam General: Alert, Oriented, Cooperative GI/Abdominal Exam: Soft, Non-Tender - Problem List & Annotations (1) 39 weeks gestation of SNOMED Code(s): 66248499 Code(s): Z3A.39 - 39 WEEKS GESTATION OF Status: Acute (2) Spontaneous rupture of membranes SNOMED Code(s): 059068740 Code(s): FKT5934 - Status: Acute (3) GBS (group B Streptococcus carrier), +RV culture, currently SNOMED Code(s): 6106894534134, 033336305, 1924938651180 Code(s): O99.820 - STREPTOCOCCUS B CARRIER STATE COMPLICATING Status: Acute (4) Vaginal delivery SNOMED Code(s): 988526885 Code(s): O80 - ENCOUNTER FOR FULL-TERM UNCOMPLICATED DELIVERY Status: Acute - Problem List Review Problem List Initiated/Reviewed/Updated: Yes - My Orders Last 24 Hours: My Active Orders 03/12/21 08:59 Resuscitation Status Routine 03/12/21 09:50 HEP C VIRUS AB [REF] Stat 03/12/21 Dinner Regular Diet [DIET] 03/12/21 17:16 Acetaminophen [TylenoL] 650 mg PO Q4H PRN Benzocaine/Menthol [Dermoplast Pain Relief [place]] See Dose Instructions TOP ASDIRECTED PRN Docusate Sodium [Colace] 100 mg PO BID PRN Ibuprofen [Motrin] 600 mg PO Q4H PRN witch Melissa [Tucks] 1 pad TOP ASDIRECTED PRN Heat Therapy [OM.PC] PRN 03/12/21 17:16 Activity as Tolerated [RC] PER UNIT ROUTINE Vital Signs [RC] ,,, Assess Lochia [WOMSER] Per Unit Routine Assess Uterine Involution [WOMSER] Per Unit Routine Breast Pump [WOMSER] Per Unit Routine Ice Therapy [OM.PC] Per Unit Routine Perineal Care [OM.PC] Per Unit Routine Peripheral IV Discontinue [OM.PC] Routine Sitz Bath [OM.PC] Per Unit Routine 03/13/21 06:30 Ready for Discharge [RC] PER UNIT ROUTINE 03/13/21 17:16 Heat Therapy [OM.PC] PRN - Assessment Assessment:: PPD#1 - Plan Plan:: * Routine cares * Bottle feeding * Discharge home today
--- NOTE | 2021-03-14 07:21 | PCM.DCSUM1 ---
Discharge Summary - Discharge Data Discharge Date: 03/13/21 Discharge Disposition: Home, Self-Care 01 Condition: Good - Referral to Home Health Primary Care Physician: Sctot Cardenas MD - Discharge Diagnosis/Problem(s) (1) 39 weeks gestation of SNOMED Code(s): 17770431 ICD Code: Z3A.39 - 39 WEEKS GESTATION OF Status: Acute (2) Spontaneous rupture of membranes SNOMED Code(s): 900075683 ICD Code: [id number] - Status: Acute (3) GBS (group B Streptococcus carrier), +RV culture, currently SNOMED Code(s): 1389760185961, 155190438, 9550798422074 ICD Code: O99.820 - STREPTOCOCCUS B CARRIER STATE COMPLICATING Status: Acute (4) Vaginal delivery SNOMED Code(s): 443416194 ICD Code: O80 - ENCOUNTER FOR FULL-TERM UNCOMPLICATED DELIVERY Status: Acute - Patient Summary/Data Complications: None Consults: None Recommended Follow-up Testing/Procedures: Follow up in 3 weeks Hospital Course: 30 y/o at 39 0/7 wks who presented with SROM. Progressed well to complete dilation and underwent an uncomplicated . See delivery note. did well and was discharged home on PPD#1 - Patient Instructions Diet: Regular Diet as Tolerated Activity: As Tolerated Activity, Other: Pelvic Rest for 6 weeks Driving: May Drive Today Showering/Bathing: May Shower Showering/Bathing, Other: May Bathe Notify Provider of: Fever, Increased Pain, Swelling and Redness, Drainage, Nausea and/or Vomiting - Discharge Plan *PRESCRIPTION DRUG MONITORING PROGRAM REVIEWED*: No *COPY OF PRESCRIPTION DRUG MONITORING REPORT IN PATIENT LAKESHA: No Home Medications: Home Meds Vits #93/Iron Fum/FA [ Formula Tablet] 1 tab PO DAILY 07/19/19 [History] Docusate Sodium [Colace] 100 mg PO BID PRN cap 03/13/21 [Rx] Ibuprofen [Motrin] 600 mg PO Q4H PRN tablet 03/13/21 [Rx] Patient Handouts: Breast Engorgement, Care After Vaginal Delivery Referrals: Fabby Casarez MD [Family Provider] - (Follow up with Dr Casarez in 3 weeks. Please call clinic to rafi next appointment. Call your for any increased vaginal bleeding, foul smelling vaginal discharge, fever, passing large clots.) - Discharge Summary/Plan Comment DC Time >30 min.: No - Patient Data Vitals - Most Recent: Last Vital Signs Temp 36.7 C 03/13/21 08:36 Pulse 82 03/13/21 14:23 Resp 14 03/13/21 04:14 BP 122/78 03/13/21 14:23 Pulse Ox 94 L 03/13/21 14:23 Weight - Most Recent: 85.729 kg I&O - Last 24 hours: Intake & Output 03/13/21 03/14/21 03/14/21 22:59 06:59 14:59 Intake Total 320 Balance 320 Med Orders - Current: Current Medications Discontinued Medications Acetaminophen (Acetaminophen 325 Mg Tab) 650 mg PO Q4H PRN PRN Reason: mild pain or fever Benzocaine/Menthol (Benzocaine/Menthol 20%-0.5% [place] 56 Gm Canister) 0 gm TOP ASDIRECTED PRN PRN Reason: Perineal Comfort Measure Last Admin: 03/12/21 17:29 Dose: 1 canister Documented by: Bupivacaine HCl (Bupivacaine 0.25% 10 Ml Sdv) 10 ml .ROUTE .STK-MED ONE Stop: 03/12/21 12:01 Diphenhydramine HCl (Diphenhydramine 50 Mg/Ml Sdv) 25 mg IVPUSH Q6H PRN PRN Reason: pruritis Docusate Sodium (Docusate Sodium 100 Mg Cap) 100 mg PO BID PRN PRN Reason: Constipation Ephedrine Sulfate (Ephedrine 50 Mg/Ml Sdv) 5 mg IVPUSH ASDIRECTED PRN PRN Reason: Hypotension Fentanyl (Fentanyl 100 Mcg/2 Ml Sdv) 100 mcg EPIDUR Q3H PRN PRN Reason: Pain Fentanyl/Bupivacaine HCl (Bupivacaine/Fentanyl/Ns 100 Ml Bag) 100 ml EPIDUR ASDIRECTED PRN PRN Reason: Pain Lactated Ringer's (Ringers, Lactated) 1,000 mls @ 100 mls/hr IV ASDIRECTED BRIGIDA Last Infusion: 03/12/21 14:41 Dose: Infused Documented by: Ampicillin Sodium 2 gm/ Sodium (Chloride) 100 mls @ 200 mls/hr IV ONETIME ONE Stop: 03/12/21 10:29 Last Admin: 03/12/21 10:16 Dose: 200 mls/hr Documented by: Ampicillin Sodium 1 gm/ Sodium (Chloride) 100 mls @ 200 mls/hr IV Q4H BRIGIDA Last Admin: 03/12/21 13:42 Dose: 200 mls/hr Documented by: Oxytocin/Lactated Ringer's (Pitocin In Lr 10 Units/1,000 Ml) 10 unit in 1,000 mls @ 12 mls/hr IV TITRATE BRIGIDA; Protocol Oxytocin/Lactated Ringer's (Pitocin In Lr 10 Units/1,000 Ml) 10 unit in 1,000 mls @ 500 mls/hr IV .CONTINUOUS BRIGIDA Last Admin: 03/12/21 15:05 Dose: 500 mls/hr Documented by: Ibuprofen (Ibuprofen 600 Mg Tab) 600 mg PO Q4H PRN PRN Reason: Mild pain or fever Last Admin: 03/13/21 00:39 Dose: 600 mg Documented by: Lidocaine HCl (Lidocaine 1% 50 Ml Mdv) 50 ml INJECT ONETIME ONE Stop: 03/12/21 09:34 Last Admin: 03/12/21 15:37 Dose: Not Given Documented by: Nalbuphine HCl (Nalbuphine 10 Mg/1 Ml Vial) 10 mg IVPUSH Q2H PRN PRN Reason: Pain Ondansetron HCl (Ondansetron 4 Mg/2 Ml Sdv) 4 mg IVPUSH Q4H PRN PRN Reason: Nausea/Vomiting Sodium Chloride (Sodium Chloride 0.9% 10 Ml Syringe) 10 ml FLUSH ASDIRECTED PRN PRN Reason: Keep Vein Open Witch Josie (Witch Josie Medicated Pads 40/Jar) 1 pad TOP ASDIRECTED PRN PRN Reason: Perineal Comfort Measure Last Admin: 03/12/21 17:29 Dose: 1 tub Documented by:
== END 2021-03-13 17:05 | disposition home or self-care (01) | DRG 807 ==
LOC: JD.OBCHECK 08:44 → JD.OB 08:59 → JD.OBCHECK 09:33 → JD.OB 09:33 → OBSVTOIN 14:59 → JD.OB 15:00
PROVIDERS: ADMIT Obstetrics & Gynecology; ATTEND Obstetrics & Gynecology
PROC: 10E0XZZ Delivery of Products of Conception, External Approach (ICD-10-PCS; principal; 2021-03-12)
PROC: 3E0R3BZ Introduction of Anesthetic Agent into Spinal Canal, Percutaneous Approach (ICD-10-PCS; 2021-03-12)
DX: O99.824 Streptococcus B carrier state complicating childbirth (principal); Z37.0 Single live birth; O99.62 Diseases of the digestive system complicating childbirth; K21.9 Gastro-esophageal reflux disease without esophagitis; O70.0 First degree perineal laceration during delivery; Z20.822 Contact with and (suspected) exposure to COVID-19; Z3A.39 39 weeks gestation of pregnancy
CPT/HCPCS: 01967; 36415; 59025; 59409; 85025; 86803; A9270-GY; J0290; J2590; J3010; J3490; J7120; U0002